=== PATIENT | male | born 1960 | race Caucasian/White ===

== ENCOUNTER 2016-11-03 09:45 | Day surgery (SDC) | payer OTHER ==
[~2016-11-03 09:45] MED LIST: PROPOFOL 500 MG/50 ML EMU IV ONE
[2016-11-03 12:12] VITALS: BP 120/77; PULSE 64; RESP 20; TEMP 97.2; O2SAT 97
== END 2016-11-03 12:25 | disposition home or self-care (01) | DRG 951 ==
LOC: SURG 09:45
PROVIDERS: ATTEND Surgery
DX: Z12.11 Encounter for screening for malignant neoplasm of colon (principal); D12.3 Benign neoplasm of transverse colon; Z80.0 Family history of malignant neoplasm of digestive organs
CPT/HCPCS: 99001; J2001; J2704

== ENCOUNTER 2017-02-24 13:57 | Outpatient (CLI) | payer OTHER ==
[2016-11-03 12:12] VITALS: O2SAT 97
== END 2017-02-24 13:58 | disposition home or self-care (01) | DRG 554 ==
LOC: CONVCARE 13:57
PROVIDERS: ATTEND Orthopaedic Surgery
DX: M17.11 Unilateral primary osteoarthritis, right knee (principal)
CPT/HCPCS: 73564